=== PATIENT | female | born 1980 | race Two or more races ===

== ENCOUNTER 2021-05-14 13:05 | Outpatient (REF) | payer OTHER, SELFPAY | END 2021-05-14 13:06 | disposition home or self-care (01) | LOC: HO.LAB 13:05 | PROVIDERS: Visit Provider Internal Medicine | DX: Z20.822 Contact with and (suspected) exposure to COVID-19 (principal) | CPT/HCPCS: C9803; U0003; U0005 ==

== ENCOUNTER 2022-03-15 15:34 | Emergency (ER) | payer OTHER, SELFPAY ==
[2022-03-15 16:32] VITALS: BP 140/80; PULSE 91; RESP 18; TEMP 36.7; O2SAT 99; BMI 22.8
--- OUTSIDE RECORDS SUMMARY | 2022-03-15 17:20 | XMS_ITS | Continuity of Care Document ---
:1980 Demographics
--- NOTE | 2022-03-15 17:27 | ED.LOWEXIN ---
HPI - Extremity Injury (Lower) General Chief Complaint: Extremity Injury, Lower Stated Complaint: pain in bottom of foot Time Seen by Provider: 03/15/22 17:27 Source: patient Mode of arrival: ambulatory Limitations: language barrier History of Present Illness HPI Narrative: 41-year-old female presents for evaluation of right ankle pain and swelling that started last Thursday. States that she was at [employer], was dancing and singing, and twisted her ankle while she was wearing high heels. She is having a difficult time putting weight on the heel, and has more swelling and pain medially than laterally. She does have a history of blood clots, had a DVT to the left lower extremity a few years ago. She is no longer on anticoagulation. She does not take hormone replacement therapy, has not been diagnosed with a clotting factor deficiency, and states to have had multiple surgeries to lower extremities for poor circulation. She does follow with a vascular team at [facility]. complaint: ankle injury Onset (ago): week(s) (1) Type of Injury: inversion Place: other ([facility]) Severity: moderate Severity scale (1-10): 5 Relieving factors: nothing Exacerbating factors: weight bearing, movement and palpation Context: jumping Associated symptoms: snap/pop sensation and able to partially bear weight Other symptoms: none Treatments prior to arrival: cold therapy, heat therapy and NSAIDS Related Data Previous Rx's Medication Instructions Recorded apixaban 5 mg (74 tabs) tablets in 5 mg PO BID #74 ea 03/15/22 a dose pack (Eliquis DVT-PE Treat 30D Start) Allergies Allergy/AdvReac Type Severity Reaction Status Date / Time tramadol [TRAMADOL] Allergy Severe Unresponsiv Verified 03/15/22 16:32 e acetaminophen [From PERCOCET] Allergy Intermediate DIFFICULTY Verified 03/15/22 16:31 BREATHING oxycodone [Percocet] Allergy Intermediate Difficulty Verified 03/15/22 16:32 Breathing codeine [CODEINE] Allergy Mild Rash Verified 03/15/22 16:32 From PERCOCET Allergy Intermediate DIFFICULTY Uncoded 03/15/22 16:31 BREATHING Codeine Sulfate Allergy Mild Rash Uncoded 03/15/22 16:32 Review of Systems Review of Systems: Constitutional: No Fever, No Chills ENT/Mouth: No Ear Pain, No Hoarseness, No sore throat Eyes: No Eye Pain, No Swelling, No Redness, No Foreign Body Cardiovascular: No Chest Pain, No SOB Respiratory: No Cough, No Dyspnea Gastrointestinal: No Nausea, No Vomiting, No Diarrhea, No abdominal Pain Genitourinary: No Dysuria, No Hematuria Musculoskeletal: positive right ankle pain, No Myalgias, positive right ankle Swelling Skin: No Skin lacerations, No rash Neuro: No Weakness, No Numbness, No Paresthesias, No Loss of Consciousness, No Dizziness, No Headache Psych: No Anxiety/Panic, No Depression Heme/Lymph: no easy bruising, no Lymphadenopathy Endocrine: No Polyuria, No Polydipsia Yes all other systems are reviewed and are negative [facility] Past Medical History Attestation statement: The following information was validated with the patient. Source: old records reviewed Social History Social History Advance Directives: No Advance Directives Information Provided: Yes Physical Exam Vital Signs: Vital Signs: Last Vital Signs Temp 98.0 F 03/15/22 16:32 Pulse 91 03/15/22 16:32 Resp 18 03/15/22 16:32 BP 140/80 H 03/15/22 16:32 Pulse Ox 99 03/15/22 16:32 O2 Del Method 03/15/22 16:32 BMI result Body Mass Index 22.8 Appearance: Alert. Oriented X3. No acute distress. Eyes: Pupils equal, round and reactive to light. ENT: Pharynx normal. Neck: Normal inspection. Neck supple. CVS: Normal heart rate and rhythm. Pulses normal. Respiratory: No respiratory distress. Breath sounds normal. Abdomen: Soft and nontender. Skin: Skin warm and dry. Normal skin color. Normal skin turgor. Extremities: No lower extremity edema. Decreased flexion extension and internal external rotation to the right ankle secondary to pain. Tenderness to the medial malleolar process, some ecchymosis noted from the malleolar process to the heel. Brisk capillary refill, equal pulses. Neuro: No motor deficit. No sensory deficit. Cranial nerves 2-12 intact. Course Course Course Narrative: 41-year-old female presents for evaluation for right ankle pain and swelling, injury occurred 1 week ago at [employer] while she was wearing heels and dancing. Description of injury consistent with inversion and suspected ankle sprain. X-rays were completed while she was in the emergency department waiting room with a negative workup. Physical exam has reduced flexion extension internal and external rotation of the right ankle secondary to pain, minimal swelling and ecchymosis noted to the right medial malleolar process. Patient does report a DVT history, and states that she ?feels like she has a DVT in her leg?. While I do not appreciate any significant difference in size of the calf, has a negative Homans, I will take patient's history and a consideration and order duplex of the right lower extremity. 20:10 discussion with radiologist, patient positive for DVT to the right lower extremity. Plan of care is to give Eliquis 10 mg here, and Eliquis starter pack for 10 mg p.o. b.i.d. for 7 days and 5 mg p.o. b.i.d. thereafter. Patient does have a vascular team, she did describe her right lower extremity pain when she had an evaluation last week, and she stated that the physician determined that injury was consistent with muscular skeletal versus ankle sprain. Patient will call her vascular team for evaluation, she has had multiple surgeries with this team for decreased blood flow to lower extremities, patient does not know what the surgeries entailed, but from what it sounds like could possibly be May-Thurner type syndrome. Will have patient follow-up with Hematology as she may have a clotting factor deficiency. She is not on any hormone replacement, is not immunosuppressed and has not had any recent flights. Patient does not have a sedentary lifestyle. Patient verbalized understanding of and agrees to plan of care discharge home. Verbalized understanding of signs and symptoms indicating need for intervention. planer setup operator utilized for all correspondence, Google translate utilized for discharge instructions. MDM - Extremity Injury (Lower) Differential Diagnosis Differential diagnosis: Likely ankle sprain and strain and ankle fracture Medical Records Attestation: I reviewed the patient's medical records. Imaging Data Ankle x-ray: Attestation: I personally reviewed and interpreted this imaging study as follows: Radiologist's impression: EXAMINATION: XR ANKLE, RIGHT CLINICAL INFORMATION: Right ankle injury? COMPARISON: None? TECHNIQUE: AP, lateral, and mortise views of the right ankle. FINDINGS: No acute fracture or dislocation. Ankle mortise is congruent and intact. No ankle joint effusion. Ankle and subtalar joint spaces are maintained. Type II os navicular noted incidentally. Mild soft tissue swelling about the ankle most pronounced medially.? XR/XR ankle RT 2V IMPRESSION: ? Venous duplex: Attestation: I personally reviewed and interpreted this imaging study as follows: Radiologist's impression: EXAMINATION:? US VENOUS ULTRASOUND WITH DOPPLER LOWER EXTREMITY, RIGHT CLINICAL INFORMATION:? Right leg pain and swelling. COMPARISON:? None TECHNIQUE: Ultrasound of the deep veins is performed from the hip to the calf with compression sonography and color and pulse Doppler assessment. Spectral analysis with color-flow imaging is performed. FINDINGS: There is hypoechoic noncompressible thrombus in the mid and distal superficial femoral vein, popliteal vein and extending into the posterior tibial veins. The proximal superficial femoral vein, profunda femoral vein, common femoral vein, and distal greater saphenous vein are patent with normal compressibility. Flow demonstrated in peroneal veins. US/US venous duplex LE RT IMPRESSION: Exam positive for DVT in the right mid to distal portion of the superficial femoral vein, popliteal vein and posterior tibial veins. ? This critical result was discussed with Rose Rodriguez NP at 8:10 PM on 03/15/2022 and it was ascertained that the content and urgency of the report was understood at the time of direct communication. Discharge Plan Discharge Clinical Impression: Ankle sprain and strain, DVT of leg (deep venous thrombosis) Patient Disposition: Home, Self-Care Instructions: Ankle Sprain (ED), Crutch Instructions (ED), Deep Vein Thrombosis (ED), R.I.C.E. Treatment (ED) Additional Instructions: Le evaluaron por dolor e hinchaz?n en el tobillo derecho. Leisa radiograf?as son negativas para fractura o dislocaci?n. Tamez dolor de tobillo es consistente con un esguince de tobillo. Utilice vendaje Leonid y muletas seg?n sea necesario. Tamez estudio de TVP prudence positivo por co?gulo de karen en la extremidad inferior derecha. [place] Eliquis 10 mg dos veces al d?a bhavin los pr?ximos 7 d?as y luego Eliquis 5 mg dos veces al d?a. Es posible que est? tomando fransisca medicamento bhavin varios meses. Llame a tamez m?dico vascular y solicite dorothy sue para dorothy evaluaci?n. Puede considerar hacer un seguimiento con Hematolog?a para un estudio adicional. Es posible que tenga dorothy deficiencia de factor de coagulaci?n. Lo remit? al Dr. Darnell. Por favor llame y solicite dorothy sue. Trevon por elegir fransisca departamento de emergencias para tamez evaluaci?n. Por favor, len un seguimiento con el m?dico de atenci?n primaria seg?n sea necesario. Regrese al departamento de emergencias por cualquier s?ntoma nuevo, preocupante o que empeore. You were evaluated for right ankle pain and swelling. Your x-rays are negative for fracture or dislocation. Your ankle pain is consistent with ankle sprain. Please use Leonid wrap and crutches as needed. Your DVT study came back positive for right lower extremity blood clot. Please take Eliquis 10 mg twice a day for the next 7 days and then Eliquis 5 mg twice a day. You may be on this medication for several months. Please call your vascular physician and request an appointment for evaluation You may consider following up with Hematology for further workup. You may have a clotting factor deficiency. I referred you to Dr. Darnell. Please call and request an appointment. Thank you for choosing this emergency department for evaluation. Please follow-up with primary care physician as needed. Return to the emergency department for any new, concerning, or worsening symptoms. Prescriptions: New Eliquis DVT-PE Treat 30D Start 5 mg (74 tabs) tablets,dose pack 5 mg PO BID Qty: 74 0RF Referrals: Deena Darnell MD [Physician] - 2 weeks (Recurrent blood clots, possible clotting factor deficiency) Stand Alone Forms: Work/School Release Discharge Date/Time: 03/15/22 22:10
[2022-03-15] MEDS: Apixaban 5 MG TABLET 10 MG PO (21:44)
== END 2022-03-15 22:10 | disposition home or self-care (01) ==
PROVIDERS: Emergency Provider Emergency Medicine Emergency Medical Services; PCP Nurse Practitioner
DX: S93.401A Sprain of unspecified ligament of right ankle, initial encounter (principal); S96.911A Strain of unspecified muscle and tendon at ankle and foot level, right foot, initial encounter; X50.1XXA Overexertion from prolonged static or awkward postures, initial encounter; I82.411 Acute embolism and thrombosis of right femoral vein; Y93.41 Activity, dancing; Y92.22 Religious institution as the place of occurrence of the external cause; Y99.9 Unspecified external cause status; Z86.718 Personal history of other venous thrombosis and embolism
CPT/HCPCS: 73600; 93971; 99281; 99284

== ENCOUNTER → 2022-04-22 10:47 | Outpatient (BNV) | payer MEDICAID, OTHER, SELFPAY | PROVIDERS: Visit Provider Internal Medicine Medical Oncology | DX: I82.401 Acute embolism and thrombosis of unspecified deep veins of right lower extremity (principal) | CPT/HCPCS: 99204; 99213 ==

== ENCOUNTER 2022-08-01 13:40 | Outpatient (REF) | payer OTHER, SELFPAY ==
--- NOTE | ~2022-08-01 | US_ITS ---
EXAMINATION: US VENOUS ULTRASOUND WITH DOPPLER LOWER EXTREMITY, RIGHT CLINICAL INFORMATION: Follow-up right leg DVT COMPARISON: Ultrasound right lower leg 03/15/2022 TECHNIQUE: Ultrasound of the deep veins is performed from the hip to the calf with compression sonography and color and pulse Doppler assessment. Spectral analysis with color-flow imaging is performed. FINDINGS: There is chronic emboli within the mid and distal superficial femoral vein and popliteal vein. The proximal superficial femoral vein is patent. The visualized common femoral vein, superficial femoral vein, profunda femoral vein, popliteal vein, and the trifurcation region shows no evidence of deep venous thrombosis. There is no significant popliteal fossa cyst. If the patient's symptoms persist, followup ultrasound in 5 days 7 days might be of value to exclude proximal propagation from a non-visualized calf vein. US/US venous duplex LE RT IMPRESSION: Chronic or residual DVT right mid and distal SFV and popliteal vein.
== END 2022-08-01 13:41 | disposition home or self-care (01) ==
LOC: HO.HMGCX 13:40
PROVIDERS: PCP Nurse Practitioner; Visit Provider Internal Medicine Medical Oncology
DX: I82.401 Acute embolism and thrombosis of unspecified deep veins of right lower extremity (principal)
CPT/HCPCS: 93971

== ENCOUNTER → 2022-10-06 10:30 | Outpatient (BNVA) | payer SELFPAY | PROVIDERS: PCP Nurse Practitioner; Visit Provider Physician Assistant Medical | DX: Z02.79 Encounter for issue of other medical certificate (principal) ==

== ENCOUNTER 2023-08-20 15:07 | Emergency (ER) | payer MEDICAID, SELFPAY ==
[2023-08-20 15:25] VITALS: BP 117/57; PULSE 77; RESP 17; TEMP 37; O2SAT 100; BMI 21.8
--- NOTE | 2023-08-20 15:27 | ED_ITS ---
HPI - General Adult General Chief complaint: Wound/Laceration Stated complaint: allergic reaction? Time Seen by Provider: 08/20/23 15:27 Source: patient Mode of arrival: ambulatory Limitations: no limitations History of Present Illness HPI narrative: This is a 43-year-old female no significant medical history presenting to the emergency department with itchy rash to the middle ankle, patient reports it started 5 days ago after returning from [facility]. Patient reports rash is itchy, red and pretty uncomfortable. Other people who were with her also the same rash, she denies going into any bodies of water but she was possibly exposed to plants or other things there. Unclear. Patient has no known allergies other than to medications. No new detergents or body lotions. Denies numbness, tingling, chest pain, shortness of breath, nausea, vomiting, abdominal pain, diarrhea. Related Data Home Medications Medication Instructions Recorded Confirmed acetaminophen 500 mg tablet 500 mg PO BID PRN Pain 04/22/22 01/23/23 albuterol sulfate 90 mcg/actuation 2 puff inhalation Q4H PRN wheezing 04/22/22 01/23/23 aerosol inhaler (ProAir HFA) cyanocobalamin (vitamin B-12) 1 tab PO DAILY 04/22/22 01/23/23 1,000 mcg tablet hydroxyzine pamoate 25 mg capsule 1 cap PO TID PRN anxiety 04/22/22 01/23/23 sumatriptan succinate 25 mg tablet 1 tab PO DAILY PRN migraine 04/22/22 01/23/23 Previous Rx's Medication Instructions Recorded apixaban 5 mg (74 tabs) tablets in 5 mg PO BID #74 ea 03/15/22 a dose pack (Eliquis DVT-PE Treat 30D Start) cephalexin 500 mg tablet 500 mg PO Q6H 5 days #20 tabs 08/20/23 hydrocortisone 2 % topical gel 1 appl topical BID PRN itching #28 08/20/23 grams hydroxyzine HCl 25 mg tablet 25 mg PO BEDTIME PRN anxiety #10 08/20/23 tabs prednisone 20 mg tablet 40 mg (2 x 20 mg) PO DAILY 5 days 08/20/23 #10 tabs Allergies Allergy/AdvReac Type Severity Reaction Status Date / Time tramadol [TRAMADOL] Allergy Severe Unresponsiv Verified 08/20/23 15:25 e acetaminophen [From PERCOCET] Allergy Intermediate DIFFICULTY Verified 08/20/23 15:25 BREATHING oxycodone [Percocet] Allergy Intermediate Difficulty Verified 08/20/23 15:25 Breathing codeine [CODEINE] Allergy Mild Rash Verified 08/20/23 15:25 From PERCOCET Allergy Intermediate DIFFICULTY Uncoded 01/23/23 09:09 BREATHING Codeine Sulfate Allergy Mild Rash Uncoded 01/23/23 09:09 Review of Systems Review of Systems: Constitutional : No Weight loss, No Fever, No Chills, No Fatigue, No Malaise ENT/Mouth : No sore throat, No Rhinorrhea Eyes: No Eye Pain, No Swelling, No Redness Cardiovascular : No Chest Pain, No SOB, No Dyspnea on Exertion, No Orthopnea, No Edema, No Palpitations Respiratory : No Cough, No Sputum, No Wheezing Gastrointestinal : No Nausea, No Vomiting, No Diarrhea, No Constipation, No abdominal Pain, No Hematochezia, No Melena Genitourinary : No Dysuria, No Urinary Frequency, No Hematuria, Musculoskeletal : No joint pain, No Myalgias, No Joint Swelling Skin : No Skin Lesions, + rash Neuro : No Weakness, No Numbness, No Dizziness, No Headache Psych : No Anxiety/Panic, No Depression All other systems reviewed and are negative Yes all other systems are reviewed and are negative [facility] Past Medical History Attestation statement: The following information was validated with the patient. Source: old records reviewed and nursing notes reviewed Medical History (Updated 08/20/23 @ 15:25 by YADIRA Pena) Mass in chest Varicose vein of leg Surgical History History of cholecystectomy Family History Family History Father Liver cancer Paternal Uncle Liver cancer Social History Social History Household Members: Spouse and Children Housing: Condominium Are you a primary administrator health care facility to a significant other at home: No Do you presently have visiting nurse or other home services: No Patient Tobacco Use Status: Never used Tobacco service: No Current occupational status: unemployed Physical Exam ED Vital Signs: Vital Signs - 24 hr 08/20/23 15:25 Temperature 98.6 F Pulse Rate 77 Respiratory Rate 17 Blood Pressure 117/57 L Pulse Oximetry 100 Oxygen Delivery Method Room Air BMI result Body Mass Index 21.8 Vital signs stable Appearance: Alert.? Oriented X3.? No acute distress.? Head: Normocephalic, atraumatic, no step-offs or deformities Eyes: Pupils equal, round and reactive to light.? ENT: Pharynx normal.? Neck: Normal inspection.? Neck supple.? CVS: Normal heart rate and rhythm.? Pulses normal.? Respiratory: No respiratory distress.? Breath sounds normal.? Skin: Skin warm and dry.? Normal skin color.? Normal skin turgor.?+ raised maculopapular rash overlying the right medial malleolus. Some overlying erythema and warmth. Extremities: No lower extremity edema.? No calf ttp. 5/5 strength to bilateral upper and lower extremities Back: No midline tenderness, no C-spine tenderness, full range of motion, no CVA tenderness bilaterally Neuro: Oriented X 3.? No motor deficit.? No sensory deficit. CN 2-12 intact Course Reevaluation(s) Reevaluation #1: I did go over instructions with patient's Icelandic, she verbalizes understanding of discharge instructions. Educated patient on diagnosis and treatment plan, answered all question, patient verbalizes understanding. At this time patient will be discharged home, advised to return with new or worsening symptoms. Educated on worrisome signs and symptoms and when to return. At this time I feel comfortable discharge home. Time: 15:32 Medical Decision Making Medical Decision Making MDM Narrative: 43-year-old female presents with rash x5 days started after coming home from [facility]. Physical exam significant for raised maculopapular rash overlying the right medial malleolus. Some overlying erythema and warmth. Likely contact dermatitis with overlying cellulitis. Unlikely arterial or venous occlusion. Other differentials include allergic reaction. However, no signs of acute anaphylaxis or respiratory distress or airway compromise. Plan at this time will discharge patient home from triage with prednisone, hydrocortisone cream, Atarax for the itchiness and Keflex due to overlying erythema and warmth that are concerning for possible cellulitis. Differential Diagnosis Differential Diagnoses: The differential diagnosis associated with the presentation includes Likely contact dermatitis with overlying cellulitis. Unlikely arterial or venous occlusion. Other differentials include allergic reaction. However, no signs of acute anaphylaxis or respiratory distress or airway compromise. Admission/Observation Consideration of admission/observation: Escalation of care including admission/observation considered External Record Review External record reviewed: Inpatient record, Office record, Outpatient record, Prior outpatient labs, Prior outpatient radiology, Primary care record and Outside ED record Prescription Management I considered prescription management with: Antibiotic and Other (Prednisone, hydrocortisone cream, Atarax) Chronic Conditions Patient?s care impacted by: Other (DVT, mass in chest) Discharge Plan Discharge Clinical Impression: Rash of foot Patient Disposition: Home, Self-Care Instructions: Contact Dermatitis (ED), Acute Rash (ED), Cold Compress or Soak (ED) Additional Instructions: Take your medications as prescribed. If you were prescribed antibiotics today, it is important that you take your medication to their entirety, do not skip any doses, do not finish them early. Follow-up with your primary care provider this week. Return to the emergency department with new or worsening symptoms. Such as fevers, chills, chest pain, shortness of breath, nausea, vomiting, dizziness, headache, vision changes, lethargy In case of emergency call 911 Prescriptions: New prednisone 20 mg tablet 40 mg PO DAILY 5 Days Qty: 10 0RF hydroxyzine HCl 25 mg tablet 25 mg PO BEDTIME PRN (Reason: anxiety) Qty: 10 0RF hydrocortisone 2 % gel 1 appl topical BID PRN (Reason: itching) Qty: 28 0RF cephalexin 500 mg tablet 500 mg PO Q6H 5 Days Qty: 20 0RF No Action Eliquis DVT-PE Treat 30D Start 5 mg (74 tabs) tablets,dose pack 5 mg PO BID Qty: 74 0RF sumatriptan succinate 25 mg tablet 1 tab PO DAILY PRN (Reason: migraine) cyanocobalamin (vitamin B-12) 1,000 mcg tablet 1 tab PO DAILY acetaminophen 500 mg Tablet 500 mg PO BID PRN (Reason: Pain) albuterol sulfate [ProAir HFA] 90 mcg/actuation HFA aerosol inhaler 2 puff inhalation Q4H PRN (Reason: wheezing) hydroxyzine pamoate 25 mg capsule 1 cap PO TID PRN (Reason: anxiety) Referrals: [facility] [Outside] - 2 days Yara Alejo NP [Primary Care Provider] - 2 days Stand Alone Forms: Work/School Release
[2023-08-20 15:29] VITALS: BP 117/57; PULSE 76; RESP 18; TEMP 37.1; O2SAT 98
== END 2023-08-20 15:46 | disposition home or self-care (01) ==
LOC: HO.ED 15:44
PROVIDERS: Emergency Provider Emergency Medicine; PCP Nurse Practitioner
DX: L50.0 Allergic urticaria (principal); Z79.899 Other long term (current) drug therapy
CPT/HCPCS: 99282; 99283